=== PATIENT | male | born 1960 | race Caucasian/White ===

== ENCOUNTER 2017-09-25 08:23 | Emergency (ER) | payer BC ==
[2017-09-25] MEDS ORDERED: Sulfamethoxazole/Trimethoprim 800-160 MG Tab PO ONE (08:24)
--- NOTE | 2017-09-25 08:50 | EDM.PDOC ---
ED HPI GENERAL MEDICAL PROBLEM - General Chief Complaint: Chest Pain Stated Complaint: heartburn, feel wea Time Seen by Provider: 09/25/17 08:35 Source of Information: Reports: Patient History Limitations: Reports: No Limitations - History of Present Illness INITIAL COMMENTS - FREE TEXT/NARRATIVE: Has been feeling weak and run down for about a week. Last night started to have heartburn which he never gets. Has been having some muscle cramps in legs and arms. Is concerned about having a heart attack. Has had some high blood pressure in the past but never treated. Denies any chest pain. Does have a smokers cough that has not changed from his normal. Denies any SOB with it. State that he had a stress test about a month ago with Dr. Catalan that he passed. Onset: Gradual Location: Reports: Generalized - Related Data Allergies Allergy/AdvReac Type Severity Reaction Status Date / Time No Known Allergies Allergy Verified 09/25/17 08:28 Home Meds: Home Meds Ascorbic Acid [Vitamin C] 1,000 mg PO DAILY 07/08/17 [History] Calcium Carbonate [Calcium] 600 mg PO DAILY 07/08/17 [History] Cholecalciferol (Vitamin D3) [Vitamin D3] 1,000 unit PO DAILY 07/08/17 [History] Cyanocobalamin (Vitamin B-12) [Vitamin B-12] 1,000 mcg PO DAILY 07/08/17 [ History] Fish Oil/[place]-3 Fatty Acids [Fish Oil 1,000 MG] 1,000 mg PO DAILY 07/08/17 [ History] Past Medical History Cardiovascular History: Reports: Hypertension Social & Family History - Tobacco Use Smoking Status *Q: Current Every Day Smoker ED ROS GENERAL - Review of Systems Review Of Systems: See Below Constitutional: Reports: Weakness, Fatigue. Denies: Fever, Chills HEENT: Reports: No Symptoms Respiratory: Reports: Cough Cardiovascular: Reports: No Symptoms GI/Abdominal: Reports: Other (heartburn) : Reports: No Symptoms Musculoskeletal: Reports: Other (see HPI) Skin: Reports: No Symptoms Neurological: Reports: No Symptoms ED EXAM, GENERAL - Physical Exam Exam: See Below Exam Limited By: No Limitations General Appearance: Alert, WD/WN, No Apparent Distress Ears: Normal External Exam, Normal Canal, Normal TMs Nose: Normal Inspection Throat/Mouth: Normal Inspection, Normal Oropharynx, No Airway Compromise Head: Atraumatic, Normocephalic Neck: Normal Inspection, Supple, Non-Tender, Full Range of Motion Respiratory/Chest: No Respiratory Distress, Lungs Clear, Normal Breath Sounds Cardiovascular: Normal Peripheral Pulses, Regular Rate, Rhythm, No Edema, No Murmur GI/Abdominal: Normal Bowel Sounds, Soft, Non-Tender, No Organomegaly Back Exam: Normal Inspection, Full Range of Motion Extremities: Normal Inspection, Normal Range of Motion, Non-Tender, No Pedal Edema, Normal Capillary Refill Neurological: Alert, Oriented Skin Exam: Warm, Dry, Intact, Normal Color Course - Vital Signs Last Recorded V/S: Last Vital Signs Temp 97.0 F 09/25/17 08:24 Pulse 75 09/25/17 08:24 Resp 18 09/25/17 08:24 BP Pulse Ox 96 09/25/17 08:24 - Orders/Labs/Meds Orders: Active Orders 24 hr Category Date Time Status EKG Documentation Completion [RC] STAT Care 09/25/17 08:48 Active Chest 2V [CR] Stat Exams 09/25/17 08:37 Taken CULTURE URINE [RM] Stat Lab 09/25/17 08:46 Received UA W/MICROSCOPIC [URIN] Stat Lab 09/25/17 08:46 Ordered EKG 12 Lead [EK] Routine Ther 09/25/17 08:37 Stop Req Labs: Laboratory Tests 09/25/17 09/25/17 09/25/17 Range/Units 08:45 08:45 08:46 WBC 15.8 H (5.0-10.0) 10^3/uL RBC 5.50 (4.50-6.00) 10^6/uL Hgb 16.8 (14.0-18.0) g/dL Hct 46.4 (40.0-54.0) % MCV 84.4 (82.0-94.0) fL MCH 30.5 (27.0-32.0) pg MCHC 36.2 (33.0-38.0) g/dL RDW Coeff of Angy 12.1 (11.0-15.0) % Plt Count 300 (150-400) 10^3/uL Neut % (Auto) 74.0 (35-85) % Lymph % (Auto) 16.2 (10-55) % [place] % (Auto) 9.3 (0-16) % Eos % (Auto) 0.4 (0-5) % Baso % (Auto) 0.1 (0-3) % Neut # (Auto) 11.66 H (1.80-7.00) 10^3/uL Lymph # (Auto) 2.55 (1.00-4.80) 10^3/uL [place] # (Auto) 1.46 H (0.00-0.80) 10^3/uL Eos # (Auto) 0.07 (0.00-0.45) 10^3/uL Baso # (Auto) 0.02 10^3/uL Sodium 127 L (136-145) mEq/L Potassium 3.5 (3.5-5.0) mEq/L Chloride 93 L (98-106) mEq/L Carbon Dioxide 25 (21-32) mmol/L BUN 15 (7-18) mg/dL Creatinine 0.9 (0.7-1.3) mg/dL Est Cr Clr Drug Dosing 93.50 mL/min Estimated GFR (MDRD) > 60 (>=60) mL/min Glucose 117 H (75-99) mg/dL Calcium 9.8 (8.4-10.1) mg/dL Magnesium 1.8 (1.8-2.4) mg/dL Total Bilirubin 0.9 (0.0-1.0) mg/dL AST 21 (15-37) U/L ALT 28 (12-78) U/L Alkaline Phosphatase 97 (46-116) U/L Lactate Dehydrogenase 205 H (100-190) U/L Creatine Kinase 149 (35-232) U/L Troponin I < 0.017 (0.00-0.06) ng/mL Total Protein 8.2 (6.4-8.2) g/dL Albumin 3.9 (3.4-5.0) g/dL Urine Color Yellow (YELLOW) Urine Appearance Cloudy (CLEAR) Urine pH 6.0 (4.5-8.0) Ur Specific [place] 1.020 (1.003-1.020) Urine Protein 30 H (NEGATIVE) mg/dL Urine Glucose (UA) Negative (NEGATIVE) mg/dL Urine Ketones 15 H (NEGATIVE) mg/dL Urine Occult Blood Large H (NEGATIVE) Urine Nitrite Positive H (NEGATIVE) Urine Bilirubin Negative (NEGATIVE) Urine Urobilinogen 0.2 (0.2-1.0) EU/dL Ur Leukocyte Esterase Large H (NEGATIVE) Urine RBC 10-20 H (0-5) /HPF Urine WBC 75-100 H (0-5) /HPF Urine WBC Clumps Many H (NOT SEEN) /HPF Ur Epithelial Cells Few H (NOT SEEN) /HPF Urine Bacteria Many H (NOT SEEN) /HPF - Re-Assessments/Exams Free Text/Narrative Re-Assessment/Exam: 09/25/17 09:35 In to discuss his lab results with the patient and mother. Departure - Departure Time of Disposition: 09:36 Disposition: Home, Self-Care 01 Condition: Good Clinical Impression: Benign hypertension, Hyponatremia UTI (urinary tract infection) Qualifiers: Urinary tract infection type: acute cystitis Hematuria presence: without hematuria Qualified Code(s): N30.00 - Acute cystitis without hematuria Instructions: Hyponatremia, Hypertension, [id number] Forms: ED Department Discharge Additional Instructions: eat extra salt for the next few days to bring sodium up start lisinopril 20 mg daily for your blood pressure. start Bactrim DS twice a day for the next 10 days follow up in the clinic with provider of choice in a week for repeat lab and blood pressure check - Problem List & Annotations (1) Benign hypertension SNOMED Code(s): 87789646 Code(s): I10 - ESSENTIAL (PRIMARY) HYPERTENSION Status: Acute Priority: High (2) Hyponatremia SNOMED Code(s): 48605049 Code(s): E87.1 - HYPO-OSMOLALITY AND HYPONATREMIA Status: Acute Priority : High (3) UTI (urinary tract infection) SNOMED Code(s): 27058245 Code(s): N39.0 - URINARY TRACT INFECTION, SITE NOT SPECIFIED Status: Acute Priority: High Qualifiers: Urinary tract infection type: acute cystitis Hematuria presence: without hematuria Qualified Code(s): N30.00 - Acute cystitis without hematuria - My Orders Last 24 Hours: My Active Orders 09/25/17 08:37 Chest 2V [CR] Stat EKG 12 Lead [EK] Routine 09/25/17 08:46 CULTURE URINE [RM] Stat UA W/MICROSCOPIC [URIN] Stat 09/25/17 08:48 EKG Documentation Completion [RC] STAT - Assessment/Plan Last 24 Hours: My Active Orders 09/25/17 08:37 Chest 2V [CR] Stat EKG 12 Lead [EK] Routine 09/25/17 08:46 CULTURE URINE [RM] Stat UA W/MICROSCOPIC [URIN] Stat 09/25/17 08:48 EKG Documentation Completion [RC] STAT Plan: needs to be seen in clinic in week for panel 8 and blood pressure check
[2017-09-25 09:08] LABS: CHLORIDE,CL 93 mEq/L (98-106); SODIUM,NA 127 mEq/L (136-145)
[2017-09-25] MEDS ORDERED: Take Home: Sulfamethoxazole/Trimethoprim 800-160 MG Tab, 2 Tab Pack PO ONE (09:41)
[2017-09-25] MEDS ORDERED: Lisinopril 20 MG Tab PO SCH (09:45)
== END 2017-09-25 09:55 | disposition home or self-care (01) ==
LOC: CC.ED 08:23
DX: N30.00 Acute cystitis without hematuria (principal); E87.1 Hypo-osmolality and hyponatremia; I10 Essential (primary) hypertension; F17.210 Nicotine dependence, cigarettes, uncomplicated; Z79.899 Other long term (current) drug therapy
CPT/HCPCS: 36415; 71046; 80053; 81001; 82550; 83615; 83735; 84484; 85025; 87086; 87088; 87186; 93005; 99284; A9270-GY

== ENCOUNTER 2017-09-27 04:11 | Emergency (ER) | payer BC ==
--- NOTE | 2017-09-27 04:48 | EDM.PDOC ---
ED HPI GENERAL MEDICAL PROBLEM - General Chief Complaint: General Stated Complaint: "NOT FEELING ANY BETTER" Time Seen by Provider: 09/27/17 04:36 Source of Information: Reports: Patient History Limitations: Reports: No Limitations - History of Present Illness INITIAL COMMENTS - FREE TEXT/NARRATIVE: States that he was bearing down to have a bowel movement and he became lightheaded and felt like he was going to pass out. has been pushing fluids since he was in the ER earlier for UTI. Has not had a BM since . Has not taken anything for constipation. Still has not had much of an appetite. He feels full easily and nauseated when he eats much. Onset: Gradual Location: Reports: Abdomen Associated Symptoms: Reports: Weakness. Denies: Shortness of Breath - Related Data Allergies Allergy/AdvReac Type Severity Reaction Status Date / Time No Known Allergies Allergy Verified 09/27/17 04:12 Home Meds: Home Meds Ascorbic Acid [Vitamin C] 1,000 mg PO DAILY 07/08/17 [History] Calcium Carbonate [Calcium] 600 mg PO DAILY 07/08/17 [History] Cholecalciferol (Vitamin D3) [Vitamin D3] 1,000 unit PO DAILY 07/08/17 [History] Cyanocobalamin (Vitamin B-12) [Vitamin B-12] 1,000 mcg PO DAILY 07/08/17 [ History] Fish Oil/[place]-3 Fatty Acids [Fish Oil 1,000 MG] 1,000 mg PO DAILY 07/08/17 [ History] Aspirin [Ecotrin] 81 mg PO DAILY 09/27/17 [History] Sulfamethoxazole/Trimethoprim [Sulfamethoxazole-Tmp Ds Tablet] 1 each PO BID [History] Past Medical History Cardiovascular History: Reports: Hypertension Respiratory History: Reports: SOB Psychiatric History: Reports: Depression - Past Surgical History GI Surgical History: Reports: Appendectomy, Hernia Repair/Other Social & Family History - Family History Family Medical History: Noncontributory - Tobacco Use Smoking Status *Q: Current Every Day Smoker Years of Tobacco use: 39 Packs/Tins Daily: 0.5 - Caffeine Use Caffeine Use: Reports: Coffee, Tea ED ROS GENERAL - Review of Systems Review Of Systems: See Below Constitutional: Denies: Fever, Chills HEENT: Reports: Vision Change (feels that vision is blurrier. Has not had eye exam for several years.) Respiratory: Reports: No Symptoms Cardiovascular: Reports: No Symptoms GI/Abdominal: Reports: Constipation, Nausea : Reports: No Symptoms Musculoskeletal: Reports: No Symptoms Skin: Reports: No Symptoms Neurological: Reports: Syncope ED EXAM, GENERAL - Physical Exam Exam: See Below Exam Limited By: No Limitations General Appearance: Alert, WD/WN, No Apparent Distress Ears: Normal External Exam, Normal Canal, Normal TMs Throat/Mouth: Normal Inspection, Normal Oropharynx Head: Atraumatic, Normocephalic Neck: Normal Inspection, Supple, Non-Tender Respiratory/Chest: No Respiratory Distress, Lungs Clear, Normal Breath Sounds Cardiovascular: Regular Rate, Rhythm, No Edema GI/Abdominal: Normal Bowel Sounds, Soft, Non-Tender, No Organomegaly. No: Guarding, Rebound Back Exam: Normal Inspection Extremities: Normal Inspection, Normal Range of Motion, No Pedal Edema Neurological: Alert, Oriented Skin Exam: Warm, Dry, Intact Course - Vital Signs Last Recorded V/S: Last Vital Signs Temp 97.0 F 09/27/17 04:14 Pulse 83 09/27/17 04:14 Resp 16 09/27/17 04:14 BP 119/77 09/27/17 04:14 Pulse Ox 94 L 09/27/17 04:14 - Orders/Labs/Meds Orders: Active Orders 24 hr Category Date Time Status UA W/MICROSCOPIC [URIN] Stat Lab 09/27/17 04:27 Ordered Labs: Laboratory Tests 09/27/17 09/27/17 Range/Units 04:25 04:27 WBC 13.2 H (5.0-10.0) 10^3/uL RBC 5.44 (4.50-6.00) 10^6/uL Hgb 16.8 (14.0-18.0) g/dL Hct 45.8 (40.0-54.0) % MCV 84.2 (82.0-94.0) fL MCH 30.9 (27.0-32.0) pg MCHC 36.7 (33.0-38.0) g/dL RDW Coeff of Angy 11.9 (11.0-15.0) % Plt Count 315 (150-400) 10^3/uL Neut % (Auto) 63.3 (35-85) % Lymph % (Auto) 23.5 (10-55) % [place] % (Auto) 10.9 (0-16) % Eos % (Auto) 2.1 (0-5) % Baso % (Auto) 0.2 (0-3) % Neut # (Auto) 8.35 H (1.80-7.00) 10^3/uL Lymph # (Auto) 3.09 (1.00-4.80) 10^3/uL [place] # (Auto) 1.43 H (0.00-0.80) 10^3/uL Eos # (Auto) 0.28 (0.00-0.45) 10^3/uL Baso # (Auto) 0.02 10^3/uL Urine Color Light yellow (YELLOW) Urine Appearance Clear (CLEAR) Urine pH 7.0 (4.5-8.0) Ur Specific [place] <= 1.005 (1.003-1.020) Urine Protein Negative (NEGATIVE) mg/dL Urine Glucose (UA) Negative (NEGATIVE) mg/dL Urine Ketones Negative (NEGATIVE) mg/dL Urine Occult Blood Small H (NEGATIVE) Urine Nitrite Negative (NEGATIVE) Urine Bilirubin Negative (NEGATIVE) Urine Urobilinogen 0.2 (0.2-1.0) EU/dL Ur Leukocyte Esterase Negative (NEGATIVE) Urine RBC 0-5 (0-5) /HPF Urine WBC Not seen (0-5) /HPF Departure - Departure Time of Disposition: 04:49 Disposition: Home, Self-Care 01 Condition: Good Clinical Impression: Constipation Qualifiers: Constipation type: slow transit constipation Qualified Code(s): K59.01 - Slow transit constipation - Discharge Information Instructions: Constipation, Adult Additional Instructions: Make appt to have eyes checked Laxative of choice to get bowels moving Prilosec 20 mg daily for the next 2 weeks continue to push fluids Recheck in the clinic if any new concerns noted. - Problem List & Annotations (1) Constipation SNOMED Code(s): 51001924 Code(s): K59.00 - CONSTIPATION, UNSPECIFIED Status: Acute Current Visit: Yes Qualifiers: Constipation type: slow transit constipation Qualified Code(s): K59.01 - Slow transit constipation - Problem List Review Problem List Initiated/Reviewed/Updated: Yes - My Orders Last 24 Hours: My Active Orders 09/27/17 04:27 UA W/MICROSCOPIC [URIN] Stat - Assessment/Plan Last 24 Hours: My Active Orders 09/27/17 04:27 UA W/MICROSCOPIC [URIN] Stat
== END 2017-09-27 05:00 | disposition home or self-care (01) ==
LOC: CC.ED 04:11
DX: K59.01 Slow transit constipation (principal); F17.210 Nicotine dependence, cigarettes, uncomplicated; I10 Essential (primary) hypertension; Z79.899 Other long term (current) drug therapy
CPT/HCPCS: 36415; 81001; 85025; 99283

== ENCOUNTER 2023-07-12 08:17 | Observation (INO) | payer BC ==
[2023-07-12] MEDS ORDERED: Ondansetron 4 MG Tab.DIS PO PRN (11:46)
[2023-07-12] MEDS ORDERED: Sodium Chloride 0.9% 10 ML Syringe FLUSH PRN (11:46)
[2023-07-12 12:03] LABS: BASOPHILS ABSOLUTE AUTO 0.02 10^3/uL (0.00-0.50); BASOPHILS PERCENT AUTO 0.1 % (0-1); EOSINOPHILS ABSOLUTE AUTO 0.03 10^3/uL (0.00-1.50); EOSINOPHILS PERCENT AUTO 0.2 % (0-6); HEMATOCRIT 45.4 % (42.0-52.0); HEMOGLOBIN 15.5 g/dL (14.0-18.0); IMMATURE GRAN ABSOLUTE AUTO 0.07 10^3/uL (0.00-0.49); IMMATURE GRAN PERCENT AUTO 0.4 % (0.0-4.9); LYMPHOCYTES ABSOLUTE AUTO 2.09 10^3/uL (0.60-5.00); LYMPHOCYTES PERCENT AUTO 10.9 % (24-44); MEAN CORPUSCULAR HEMOGLOBIN 29.5 pg (27.0-32.0); MEAN CORPUSCULAR HGB CONC 34.1 g/dL (32.0-36.0); MEAN CORPUSCULAR VOLUME 86.5 fL (83.0-97.0); MONOCYTES ABSOLUTE AUTO 1.33 10^3/uL (0.00-1.50); NEUTROPHILS ABSOLUTE AUTO 15.56 x10^3/uL (1.80-8.00); NEUTROPHILS PERCENT AUTO 81.4 % (41-71); PLATELET COUNT,PLT 341 10^3/uL (150-400); RED BLOOD CELL COUNT 5.25 x10^6/uL (4.50-6.00); WHITE BLOOD CELL COUNT,WBC 19.1 10^3/uL (4.0-11.0)
[2023-07-12 12:31] LABS: ALANINE AMINOTRANSFERASE,ALT 30 U/L (12-78); ALBUMIN 3.7 g/dL (3.4-5.0); ALKALINE PHOSPHATASE 93 U/L (46-116); ASPARTATE AMNIOTRANSFERASE,AST 26 U/L (15-37); BILIRUBIN TOTAL 0.9 mg/dL (0.0-1.0); BLOOD UREA NITROGEN,BUN 12 mg/dL (7-18); C-REACTIVE PROTEIN 5.12 mg/dL (<=0.50); CALCIUM 8.9 mg/dL (8.4-10.1); CARBON DIOXIDE,CO2 26 mmol/L (21-32); CHLORIDE,CL 96 mEq/L (98-106); CREATININE 0.9 mg/dL (0.7-1.3); ESTIMATED GFR 96 mL/min (>=60); GLUCOSE RANDOM 113 mg/dL (75-99); POTASSIUM,K 3.2 mEq/L (3.5-5.0); SODIUM,NA 134 mEq/L (136-145)
[2023-07-12] MEDS: Sodium Chloride 0.9% 1,000 ML IV SCH ×2 (12:56→14:37)
[2023-07-12] MEDS: Ondansetron 4 MG/2 ML SDV IV PRN (12:59)
[2023-07-12] MEDS ORDERED: Sodium Chloride 0.9% 1,000 ML IV SCH (13:00)
[2023-07-12] MEDS: Acetaminophen 325 MG Tab PO PRN (13:01)
[2023-07-12] MEDS: cefTRIAXone 1 GM Vial IVPUSH SCH (13:25)
[2023-07-13 07:45] LABS: BASOPHILS ABSOLUTE AUTO 0.02 10^3/uL (0.00-0.50); BASOPHILS PERCENT AUTO 0.1 % (0-1); EOSINOPHILS ABSOLUTE AUTO 0.04 10^3/uL (0.00-1.50); EOSINOPHILS PERCENT AUTO 0.3 % (0-6); HEMATOCRIT 38.7 % (42.0-52.0); HEMOGLOBIN 13.1 g/dL (14.0-18.0); IMMATURE GRAN ABSOLUTE AUTO 0.07 10^3/uL (0.00-0.49); IMMATURE GRAN PERCENT AUTO 0.5 % (0.0-4.9); LYMPHOCYTES ABSOLUTE AUTO 2.36 10^3/uL (0.60-5.00); LYMPHOCYTES PERCENT AUTO 16.6 % (24-44); MEAN CORPUSCULAR HEMOGLOBIN 30.1 pg (27.0-32.0); MEAN CORPUSCULAR HGB CONC 33.9 g/dL (32.0-36.0); MONOCYTES ABSOLUTE AUTO 1.71 10^3/uL (0.00-1.50); NEUTROPHILS PERCENT AUTO 70.5 % (41-71); PLATELET COUNT,PLT 281 10^3/uL (150-400); RED BLOOD CELL COUNT 4.35 x10^6/uL (4.50-6.00); WHITE BLOOD CELL COUNT,WBC 14.2 10^3/uL (4.0-11.0)
[2023-07-13 07:58] LABS: C-REACTIVE PROTEIN 5.76 mg/dL (<=0.50); CALCIUM 7.6 mg/dL (8.4-10.1); CREATININE 1.1 mg/dL (0.7-1.3); EST CRCL DRUG DOSING (CG) 70.97 mL/min; POTASSIUM,K 3.8 mEq/L (3.5-5.0)
[2023-07-14 07:21] LABS: BASOPHILS ABSOLUTE AUTO 0.05 10^3/uL (0.00-0.50); BASOPHILS PERCENT AUTO 0.4 % (0-1); EOSINOPHILS ABSOLUTE AUTO 0.11 10^3/uL (0.00-1.50); EOSINOPHILS PERCENT AUTO 0.9 % (0-6); HEMATOCRIT 39.1 % (42.0-52.0); HEMOGLOBIN 13.4 g/dL (14.0-18.0); IMMATURE GRAN ABSOLUTE AUTO 0.04 10^3/uL (0.00-0.49); IMMATURE GRAN PERCENT AUTO 0.3 % (0.0-4.9); LYMPHOCYTES ABSOLUTE AUTO 2.46 10^3/uL (0.60-5.00); LYMPHOCYTES PERCENT AUTO 19.6 % (24-44); MEAN CORPUSCULAR HEMOGLOBIN 30.4 pg (27.0-32.0); MEAN CORPUSCULAR HGB CONC 34.3 g/dL (32.0-36.0); MEAN CORPUSCULAR VOLUME 88.7 fL (83.0-97.0); MONOCYTES ABSOLUTE AUTO 1.65 10^3/uL (0.00-1.50); MONOCYTES PERCENT AUTO 13.2 % (0-10); NEUTROPHILS ABSOLUTE AUTO 8.23 x10^3/uL (1.80-8.00); NEUTROPHILS PERCENT AUTO 65.6 % (41-71); PLATELET COUNT,PLT 312 10^3/uL (150-400); RED BLOOD CELL COUNT 4.41 x10^6/uL (4.50-6.00); WHITE BLOOD CELL COUNT,WBC 12.5 10^3/uL (4.0-11.0)
[2023-07-14 07:43] LABS: C-REACTIVE PROTEIN 6.76 mg/dL (<=0.50); CALCIUM 7.7 mg/dL (8.4-10.1); CREATININE 0.8 mg/dL (0.7-1.3); EST CRCL DRUG DOSING (CG) 97.59 mL/min; POTASSIUM,K 3.3 mEq/L (3.5-5.0)
[2023-07-14] MEDS ORDERED: Potassium Chloride 10 MEQ Tab.ER PO ONE (09:55)
[2023-07-14 10:18] VITALS: BP 145/92; PULSE 83
== END 2023-07-14 10:18 | disposition home or self-care (01) ==
LOC: CC.CHC 08:17 → CC.MS 11:06 → UNDOADMOB 11:06 → CC.MS 11:46
PROVIDERS: ADMIT Physician Assistant Medical; ATTEND Physician Assistant Medical
DX: N30.00 Acute cystitis without hematuria (principal); E86.0 Dehydration; D72.829 Elevated white blood cell count, unspecified; I10 Essential (primary) hypertension; F32.A Depression, unspecified; Z79.899 Other long term (current) drug therapy; Z79.82 Long term (current) use of aspirin; Z79.2 Long term (current) use of antibiotics; Z72.0 Tobacco use; Z98.890 Other specified postprocedural states
CPT/HCPCS: 36415; 80048; 80053; 83605; 84145; 85025; 86140; 87040; A9270-GY; J0696; J2405; J7030

== ENCOUNTER 2023-07-29 10:28 | Day surgery (SDC) | payer BC ==
[2023-07-29] MEDS: Lactated Ringers 1,000 ML IV SCH (10:45)
[2023-07-29] MEDS ORDERED: Midazolam 1 MG/ML 2 ML SDV ONE (10:57)
[2023-07-29] MEDS ORDERED: Ketamine 200 MG/20 ML MDV ONE (10:57)
[2023-07-29] MEDS ORDERED: Propofol 200 MG/20 ML SDV ONE ×2 (10:57)
[2023-07-29] MEDS ORDERED: fentaNYL 50 MCG/ML SDV ONE (10:57)
== END 2023-07-29 12:15 | disposition home or self-care (01) ==
LOC: CC.SDS 10:28
PROVIDERS: ATTEND Family Medicine
DX: Z12.11 Encounter for screening for malignant neoplasm of colon (principal); D12.3 Benign neoplasm of transverse colon; D12.2 Benign neoplasm of ascending colon; K62.1 Rectal polyp; K57.30 Diverticulosis of large intestine without perforation or abscess without bleeding; E78.5 Hyperlipidemia, unspecified; R97.20 Elevated prostate specific antigen [PSA]; Z80.0 Family history of malignant neoplasm of digestive organs; Z79.82 Long term (current) use of aspirin; Z79.899 Other long term (current) drug therapy
CPT/HCPCS: 00811; J2250; J2704; J3010; J3490; J7120